=== PATIENT | female | born 1985 | race Caucasian/White ===

== ENCOUNTER → 2018-03-15 | Outpatient (CLI) | payer OTHER | END | disposition home or self-care (01) | LOC: NST 15:27 | DX: Z34.03 Encounter for supervision of normal first pregnancy, third trimester (principal) ==

== ENCOUNTER 2018-03-22 15:02 | Outpatient (CLI) | payer OTHER | END 2018-03-22 17:33 | disposition home or self-care (01) | LOC: NST 15:02 | DX: Z34.83 Encounter for supervision of other normal pregnancy, third trimester (principal) ==